=== PATIENT | male | born 1960 | race Caucasian/White ===

== ENCOUNTER 2017-07-22 11:11 | Day surgery (SDC) | payer BC ==
[2017-07-22] MEDS ORDERED: LIDOCAINE 2% MDV (20MG/ML) 20ML VIAL IV ONE (11:12)
[2017-07-22] MEDS ORDERED: PROPOFOL 10 MG/ML VIAL IV ONE (11:12)
--- NOTE | 2017-07-25 09:20 | Operative Note ---
DATE OF SURGERY: 07/22/2017 SURGEON: Kallie Eng MD OPERATION: ESOPHAGOGASTRODUODENOSCOPY. INDICATIONS: This is a 57-year-old male with history of gastroesophageal reflux disease with dysphagia who presented for esophagogastroduodenoscopy. POSTOPERATIVE DIAGNOSES: 1. Mild gastritis. 2. Normal esophagus and duodenum. ANESTHESIA: Sedation is per Anesthesia. Pulse oximetry was monitored throughout the procedure to maintain O2 saturation of 90% or greater. Supplemental oxygen was administered via nasal cannula. Cardiac and vital signs were monitored throughout the duration of the procedure, and they were stable. The procedure of esophagogastroduodenoscopy and risks and benefits of the procedure, including the risk of bleeding and perforation, among others, were explained to the patient who voiced understanding and agreed to have the procedure done. Physical examination was performed, and the patient was found stable for sedation. PROCEDURE: The patient was placed in the left lateral position. Sedation was initiated. A plastic bite block was inserted into the oral cavity. The Olympus [id number] gastroscope was introduced into the oral cavity and advanced to the proximal esophagus without difficulty. The esophageal mucosa was carefully examined upon introduction of the gastroscope. The proximal and mid and distal esophageal mucosa appeared normal. The gastroscope was then advanced into the stomach, and surveillance of the stomach revealed diffuse erythema along the gastric body and antrum but no ulcers were noted. The gastroscope was then advanced to the descending duodenum without difficulty. The duodenal bulb and descending duodenum appeared normal. The gastroscope was then withdrawn into the stomach and retroflexion was performed. There were no other lesions noted. Multiple duodenal and gastric biopsies were obtained. The gastroscope was then withdrawn and the procedure was terminated. The patient tolerated the procedure well without any immediate complications. He remained with stable vital signs and was transferred to the recovery room. RECOMMENDATIONS: 1. The patient is to be on high-fiber diet. 2. The patient is to try proton pump inhibitors, omeprazole 20 mg p.o. daily. 3. I would be happy to see him back in the office as needed. Thank you for allowing me to participate in the care of your patient. CC: Dr. Belem SOLIS
== END 2017-07-22 12:10 | disposition home or self-care (01) ==
LOC: HOP 11:11
PROVIDERS: ATTEND Internal Medicine Gastroenterology
DX: K21.9 Gastro-esophageal reflux disease without esophagitis (principal); R13.10 Dysphagia, unspecified; K29.70 Gastritis, unspecified, without bleeding

== ENCOUNTER 2017-10-14 07:33 | Emergency (ER) | payer BC ==
[2017-10-14] MEDS ORDERED: ASPIRIN 325 MG TABLET PO ONE (07:49)
[2017-10-14] MEDS ORDERED: AL HYDROX/MAG HYDROX 30ML UD PO ONE (07:51)
[2017-10-14 07:59] LABS: HEMATOCRIT 46.9 % (42.0-52.0); MEAN CELL VOLUME 89.3 fl (81-97); MEAN CORPUSCULAR HEMOGLOBIN 30.5 pg (27-33); MEAN CORPUSCULAR HGB CONC 34.1 g/dl (32-36); MEAN PLATELET VOLUME 10.7 fl (7.4-10.4); PLATELET COUNT 236 K/uL (130-400); RED BLOOD COUNT 5.25 M/uL (4.40-5.70); RED CELL DISTRIBUTION WIDTH 12.6 % (11.5-14.5)
--- NOTE | 2017-10-14 08:02 | Emergency Department Record ---
History of Present Illness - General Chief Complaint: Chest Pain Stated Complaint: CHEST PAIN Time Seen by Provider: 10/14/17 07:35 Source: Patient Mode of Arrival: Ambulatory - History of Present Illness Initial Comments: The patient states he has had a lot of stress recently: needing to fix his son' s truck for his work, sister in the hospital, mother newly in EC facility, and this morning he took his brother to the emergency department. When he got back home from this, around 6:30 or 6:45, he developed chest pressure/heaviness, tightness with nausea, dizziness and MARCIN which then was 7-8/10 and associated with difficulty breathing and a feeling of clamminess. He states that on Tuesday , 5 days go, he had similar symptoms while walking during golf which lasted 1- 1.5 hours. He currently states his chest pressure is 1/10 and he is feeling much better, with no nausea dizziness, or difficulty breathing. He just started on a cholesterol medication for elevated cholesterol, is a nonsmoker, no DM, htn, or FH of heart problems. This morning he took 2 TUMS and omeprazole. 4-5 years ago he was seen for GERD, but this feels different. He states he had a stress test "a few years ago" which was "fine." MD Complaint: Chest pain Pain Location: Substernal Severity: Mild Quality: Heaviness, Tightness Consistency: Intermittent Improves With: Nothing Worsens With: Nothing Anginal Symptoms: Nausea Treatments Prior to Arrival: None - Related Data Home Medications Medication Instructions Recorded Confirmed Last Taken Atorvastatin Calcium [Lipitor] 10 mg PO QHS 10/14/17 10/14/17 10/13/17 Dutasteride 0.5 mg PO DAILY 10/14/17 10/14/17 10/13/17 Omeprazole 20 mg PO DAILY 10/14/17 10/14/17 10/14/17 Tamsulosin HCl [Flomax] 0.4 mg PO DAILY 10/14/17 10/14/17 10/13/17 Allergies Allergy/AdvReac Type Severity Reaction Status Date / Time No Known Drug Allergies Allergy Verified 10/14/17 07:43 Travel Screening - Travel/Exposure Within Last 30 Days Have you traveled within the last 30 days?: No Review of Systems Reviewed: No additional complaints except as noted below Constitutional: Reports: As per HPI. Denies: Chills, Fever, Malaise, Night sweats, Weakness, Weight change Eyes: Reports: As per HPI. Denies: Eye discharge, Eye pain, Photophobia, Vision change ENT: Reports: As per HPI. Denies: Congestion, Dental pain, Ear pain, Epistaxis , Hearing loss, Throat pain Respiratory: Reports: As per HPI. Denies: Cough, Dyspnea, Hemoptysis, Stridor, Wheezes Cardiovascular: Reports: As per HPI. Denies: Arrhythmia, Chest pain, Dyspnea on exertion, Edema, Murmurs, Orthopnea, Palpitations, Paroxysmal nocturnal dyspnea, Rheumatic Fever, Syncope Endocrine: Reports: As per HPI. Denies: Fatigue, Heat or cold intolerance, Polydipsia, Polyuria Gastrointestinal: Reports: As per HPI. Denies: Abdominal pain, Constipation, Diarrhea, Hematemesis, Hematochezia, Melena, Nausea, Vomiting Genitourinary: Reports: As per HPI. Denies: Dysuria, Frequency, Hematuria, Incontinence, Retention, Testicular pain, Testicular mass, Urgency Musculoskeletal: Reports: As per HPI. Denies: Arthralgia, Back pain, Gout, Joint swelling, Myalgia, Neck pain Skin: Reports: As per HPI. Denies: Bruising, Change in color, Change in hair/ nails, Lesions, Pruritus, Rash Neurological: Reports: As per HPI. Denies: Abnormal gait, Confusion, Headache, Numbness, Paresthesias, Seizure, Tingling, Tremors, Vertigo, Weakness Psychiatric: Reports: As per HPI. Denies: Anxiety, Auditory hallucinations, Depression, Homicidal thoughts, Suicidal thoughts, Visual hallucinations Hematological/Lymphatic: Reports: As per HPI. Denies: Anemia, Blood Clots, Easy bleeding, Easy bruising, Swollen glands Past Medical History - SOCIAL HISTORY Smoking Status: Never smoker Alcohol Use: Occasional Drug Use: None - RESPIRATORY Hx Respiratory Disorders: No - CARDIOVASCULAR Hx Cardio Disorders: Yes Comment:: high cholesterol - NEURO Hx Neuro Disorders: No - GI Hx GI Disorders: Yes Hx Reflux: Yes Comment:: UMBILICAL HERNIA 05/05 - Hx Genitourinary Disorders: Yes Hx Prostate Problems: Yes (HX BPH) - ENDOCRINE Hx Endocrine Disorders: No - MUSCULOSKELETAL Hx Musculoskeletal Disorders: Yes Hx Back Injury: Yes ( A CHILD) - PSYCH Hx Psych Problems: Yes Hx Anxiety: Yes (OCC.) - HEMATOLOGY/ONCOLOGY Hx Hematology/Oncology Disorders: No Family Medical History Any Significant Family History?: Yes Family Hx Comment (NOT TO BE USED IN PLACE OF ITEMS BELOW): father-pacemaker Physical Exam - General General Appearance: Alert, Oriented x3, Cooperative, Mild distress (mildly anxious) - Head Head exam: Normal inspection - Eye Eye exam: Normal appearance, PERRL Pupils: Normal accommodation - ENT ENT exam: Normal exam, Mucous membranes moist, Normal external ear exam, Normal orophraynx, TM's normal bilaterally Ear exam: Normal external inspection. negative: External canal tenderness Nasal Exam: Normal inspection. negative: Discharge, Sinus tenderness Mouth exam: Normal external inspection, Tongue normal Teeth exam: Normal inspection. negative: Dental caries Throat exam: Normal inspection. negative: Tonsillar erythema, Tonsillar exudate - Neck Neck exam: Normal inspection, Full ROM. negative: Tenderness - Respiratory Respiratory exam: Normal lung sounds bilaterally. negative: Respiratory distress - Cardiovascular Cardiovascular Exam: Regular rate, Normal rhythm, Normal heart sounds - GI/Abdominal GI/Abdominal exam: Soft, Normal bowel sounds. negative: Tenderness - Rectal Rectal exam: Deferred - exam: Deferred - Extremities Extremities exam: Normal inspection, Full ROM, Normal capillary refill. negative: Calf tenderness, Pedal edema, Tenderness - Back Back exam: Reports: Normal inspection, Full ROM. Denies: Muscle spasm, Rash noted, Tenderness - Neurological Neurological exam: Alert, CN II-XII intact, Normal gait, Oriented X3, Reflexes normal. negative: Motor sensory deficit - Psychiatric Psychiatric exam: Normal affect, Normal mood - Skin Skin exam: Dry, Intact, Normal color, Warm Course Vital Signs 10/14/17 07:40 Temperature 97.6 F Pulse Rate 58 L Respiratory 20 Rate Blood Pressure 129/79 Pulse Ox 100 - Reevaluation(s) Reevaluation #1: Patient states he has no chest pain currently, just "feeling of his GERD" slightly in his chest. 10/14/17 08:18 Reevaluation #2: Patient prefers admission to [facility]. 10/14/17 08:35 Reevaluation #3: Patient is pain free. 10/14/17 08:43 Reevaluation #4: Discussed with Head And Neck Surgeon Dr. Caldwell at [facility] who accepts patient in transfer to their emergency department. Spoke with Dr. Gama emergency attending who accepts patient in transfer EDept to EDept. Patient aware, understands, and agrees. All questions answered. Agree no nitro drip as patient is painfree with systolic BP of 109. 10/14/17 09:01 Medical Decision Making - Management Options MDM Management: Additional Work-up Planned (e.g. ADM/Transfer/OP Study) ( Transfer to [facility] to Dr. Pina emergency department) - Data Complexity MDM Data: Labs Ordered and/or Reviewed (troponin 0.025 indeterminate), X-Ray Ordered and/or Reviewed (CXR: Neg per radiologist. Disc sent with patien), EKG Ordered and/or Reviewed (1mm ST depression V4-6, lateral leads, new from prior of 04-28-16.) - Lab Data Result diagrams: 10/14/17 07:54 10/14/17 07:54 - EKG Data -: EKG Interpreted by Me EKG: Abnormal EKG (ST depression lateral leads) Disposition Disposition: Transfer Clinical Impression: Elevated troponin, Abnormal EKG Chest pain due to myocardial ischemia Qualifiers: Ischemic chest pain type: unstable angina pectoris Qualified Code(s): I20.0 - Unstable angina Disposition: Acute Care Hospital Transfer Decision to Admit: Admit from ER Transfer To: [facility] Emergency Department Reason For Transfer: Specialty services of Cardiology Accepting Physician: Dr. Fernandes/Dr. Gaam Time Discussed w/Accepting Physician: 09:08 Condition: (3) Guarded Forms: Patient Portal Access Quality - Quality Measures Quality Measures: N/A - Blood Pressure Screening Does Patient Have Any of the Following: No Blood Pressure Classification: Pre-Hypertensive BP Reading Systolic Measurement: 129 Diastolic Measurement: 79 Screening for High Blood Pressure: < Normal BP, F/U Not Required > [G8783]
--- NOTE | 2017-10-14 08:06 | Emergency Department Record ---
History of Present Illness - General Stated Complaint: CHEST PAIN Time Seen by Provider: 10/14/17 07:35 Source: Patient - History of Present Illness Initial Comments: The patient developed anterior chest pain around 6:30 this morning associated with some nausea and anxiety. He states he is much better now but has some GERD symptoms which are mild. He took two tums and omeprazole prior to arrival. MD Complaint: Chest pain - Related Data Home Medications Medication Instructions Recorded Confirmed Last Taken Atorvastatin Calcium [Lipitor] 10 mg PO QHS 10/14/17 10/14/17 10/13/17 Dutasteride 0.5 mg PO DAILY 10/14/17 10/14/17 10/13/17 Omeprazole 20 mg PO DAILY 10/14/17 10/14/17 10/14/17 Tamsulosin HCl [Flomax] 0.4 mg PO DAILY 10/14/17 10/14/17 10/13/17 Allergies Allergy/AdvReac Type Severity Reaction Status Date / Time No Known Drug Allergies Allergy Verified 10/14/17 07:43 Review of Systems Reviewed: No additional complaints except as noted below Constitutional: Reports: As per HPI. Denies: Chills, Fever, Malaise, Night sweats, Weakness, Weight change Eyes: Reports: As per HPI. Denies: Eye discharge, Eye pain, Photophobia, Vision change ENT: Reports: As per HPI. Denies: Congestion, Dental pain, Ear pain, Epistaxis , Hearing loss, Throat pain Respiratory: Reports: As per HPI. Denies: Cough, Dyspnea, Hemoptysis, Stridor, Wheezes Cardiovascular: Reports: As per HPI. Denies: Arrhythmia, Chest pain, Dyspnea on exertion, Edema, Murmurs, Orthopnea, Palpitations, Paroxysmal nocturnal dyspnea, Rheumatic Fever, Syncope Endocrine: Reports: As per HPI. Denies: Fatigue, Heat or cold intolerance, Polydipsia, Polyuria Gastrointestinal: Reports: As per HPI. Denies: Abdominal pain, Constipation, Diarrhea, Hematemesis, Hematochezia, Melena, Nausea, Vomiting Genitourinary: Reports: As per HPI. Denies: Dysuria, Frequency, Hematuria, Incontinence, Retention, Testicular pain, Testicular mass, Urgency Musculoskeletal: Reports: As per HPI. Denies: Arthralgia, Back pain, Gout, Joint swelling, Myalgia, Neck pain Skin: Reports: As per HPI. Denies: Bruising, Change in color, Change in hair/ nails, Lesions, Pruritus, Rash Neurological: Reports: As per HPI. Denies: Abnormal gait, Confusion, Headache, Numbness, Paresthesias, Seizure, Tingling, Tremors, Vertigo, Weakness Psychiatric: Reports: As per HPI. Denies: Anxiety, Auditory hallucinations, Depression, Homicidal thoughts, Suicidal thoughts, Visual hallucinations Hematological/Lymphatic: Reports: As per HPI. Denies: Anemia, Blood Clots, Easy bleeding, Easy bruising, Swollen glands Past Medical History - SOCIAL HISTORY Smoking Status: Never smoker - RESPIRATORY Hx Respiratory Disorders: No - CARDIOVASCULAR Hx Cardio Disorders: Yes Hx Hypertension: Yes (under control, currently not taking meds) - NEURO Hx Neuro Disorders: No - GI Hx GI Disorders: Yes Hx Reflux: Yes (OCC) Comment:: UMBILICAL HERNIA 05/05 - Hx Genitourinary Disorders: Yes Hx Prostate Problems: Yes (HX BPH) - ENDOCRINE Hx Endocrine Disorders: No - MUSCULOSKELETAL Hx Musculoskeletal Disorders: Yes Hx Back Injury: Yes ( A CHILD) - PSYCH Hx Psych Problems: Yes Hx Anxiety: Yes (OCC.) - HEMATOLOGY/ONCOLOGY Hx Hematology/Oncology Disorders: No Family Medical History Any Significant Family History?: No Physical Exam - General General Appearance: Alert, Oriented x3, Cooperative, Mild distress - Head Head exam: Normal inspection - Eye Eye exam: Normal appearance, PERRL Pupils: Normal accommodation - ENT ENT exam: Normal exam, Mucous membranes moist, Normal external ear exam, Normal orophraynx, TM's normal bilaterally Ear exam: Normal external inspection. negative: External canal tenderness Nasal Exam: Normal inspection. negative: Discharge, Sinus tenderness Mouth exam: Normal external inspection, Tongue normal Teeth exam: Normal inspection. negative: Dental caries Throat exam: Normal inspection. negative: Tonsillar erythema, Tonsillar exudate - Neck Neck exam: Normal inspection, Full ROM. negative: Tenderness - Respiratory Respiratory exam: Normal lung sounds bilaterally. negative: Respiratory distress - Cardiovascular Cardiovascular Exam: Regular rate, Normal rhythm, Normal heart sounds - GI/Abdominal GI/Abdominal exam: Soft, Normal bowel sounds. negative: Tenderness - Rectal Rectal exam: Deferred - exam: Deferred - Extremities Extremities exam: Normal inspection, Full ROM, Normal capillary refill. negative: Calf tenderness, Pedal edema, Tenderness - Back Back exam: Reports: Normal inspection, Full ROM. Denies: CVA tenderness (R), CVA tenderness (L), Muscle spasm, Rash noted, Tenderness - Neurological Neurological exam: Alert, CN II-XII intact, Normal gait, Oriented X3, Reflexes normal. negative: Motor sensory deficit - Psychiatric Psychiatric exam: Normal affect, Normal mood - Skin Skin exam: Dry, Intact, Normal color, Warm Course - Reevaluation(s) Reevaluation #1: See other chart for results and disposition 10/14/17 16:39 Reevaluation #2: See initial chart for progress and results. This is a duplicate chart. 10/14/17 16:42 Reevaluation #3: Spoke with cardiology at [facility] Dr. Gupta," and then spoke with EDept Attending Dr. Lorenz" who both accept patient in transfer to [facility] in [place]. Patient aware and in agreement. 10/14/17 16:58 Medical Decision Making - Management Options MDM Management: Additional Work-up Planned (e.g. ADM/Transfer/OP Study) - Data Complexity MDM Data: Labs Ordered and/or Reviewed, X-Ray Ordered and/or Reviewed, EKG Ordered and/or Reviewed - Lab Data Result diagrams: 10/14/17 07:54 10/14/17 07:54 - EKG Data -: EKG Interpreted by Al EKG: Abnormal EKG (ST depresion lateral leads, new from prior of 2015) - Radiology Data Radiology results: Report reviewed Disposition Disposition: Transfer Clinical Impression: Elevated troponin, Abnormal EKG Chest pain due to myocardial ischemia Qualifiers: Ischemic chest pain type: unstable angina pectoris Qualified Code(s): I20.0 - Unstable angina Disposition: Acute Care Hospital Transfer Decision to Admit: Admit from ER Transfer To: [facility] Emergency Reason For Transfer: [employer] specialty care Accepting Physician: Dr. Fournier; Dr. Ivey Time Discussed w/Accepting Physician: 09:30 Condition: (3) Guarded Forms: Patient Portal Access Quality - Quality Measures Quality Measures: N/A - Blood Pressure Screening Does Patient Have Any of the Following: No Blood Pressure Classification: Pre-Hypertensive BP Reading Systolic Measurement: 129 Diastolic Measurement: 79 Screening for High Blood Pressure: < Normal BP, F/U Not Required > [G8783] Pre-Hypertensive Follow-up Interventions: Follow-up with rescreen every year.
[2017-10-14 08:10] LABS: BLOOD UREA NITROGEN 13 mg/dL (6-20)
[2017-10-14 08:11] LABS: CREATININE 0.9 mg/dL (0.7-1.2); EST GLOMERULAR FILTRATION RATE > 60 mL/min; TOTAL PROTEIN 7.4 g/dL (6.6-8.7)
[2017-10-14 08:13] LABS: GLUCOSE,RANDOM 125 mg/dL (74-109)
[2017-10-14 08:16] LABS: ALB/GLOB RATIO 1.8 (1.1-1.8); ALBUMIN 4.8 g/dL (4.0-5.0); ALKALINE PHOSPHATASE 65 U/L (40-129); ALT/SGPT 23 U/L (<41); AST/SGOT 27 U/L (10.0-50.0)
[2017-10-14] MEDS ORDERED: 0.9 % SODIUM CHLORIDE 1,000 ML BAG IV ONE (08:26)
[2017-10-14 08:27] LABS: THYROID STIMULATING HORMONE 1.65 uIU/mL (0.270-4.20)
[2017-10-14 08:28] LABS: PROTHROMBIN TIME (PATIENT) 10.3 SECONDS (9.5-12.1)
[2017-10-14] MEDS ORDERED: HEPARIN SODIUM 1000 UNIT/1 ML 10ML VIAL IVP ONE (08:40)
[2017-10-14] MEDS ORDERED: HEPARIN SODIUM/D5W 25,000 UNITS/500 ML BAG IV SCH (08:45)
--- NOTE | 2017-10-14 12:33 | RADIOLOGY REPORT ---
EXAM: PORTABLE CHEST HISTORY: DIFFICULTY IN BREATHING. TECHNIQUE: Portable AP upright view of the chest was performed. FINDINGS: The heart size is normal. The lung beckham are clear. The osseous structures are normal. IMPRESSION: NEGATIVE CHEST EXAMINATION. JOB NUMBER: [id number] MTDD
== END 2017-10-14 09:38 | disposition short-term general hospital (02) ==
LOC: ER 07:33
DX: I20.0 Unstable angina (principal); R79.89 Other specified abnormal findings of blood chemistry; R94.31 Abnormal electrocardiogram [ECG] [EKG]; R11.0 Nausea; R06.00 Dyspnea, unspecified; I10 Essential (primary) hypertension
CPT/HCPCS: 71045; 80053; 84443; 84484; 85027; 85379; 85610; 85730; 93005; 93010; 96365; 96375; 99285